=== PATIENT | female | born 1960 ===

== ENCOUNTER 2016-12-22 00:25 | Emergency (ER) | payer SELFPAY ==
--- NOTE | 2016-12-22 04:38 | ED PDOC ---
HPI: Psych/Substance Abuse Chief Complaint (Nursing): Alcohol Ingestion Chief Complaint (Provider): Alcohol Ingestion History/Exam Limitations: no limitations Onset/Duration Of Symptoms: Hrs Additional Complaint(s): Arabella Richardson is a 56 year old female with no known past pertinent medical history who presents to the ED for alcohol intoxication. She was brought to the ED with associated symptoms of Slur speech and unstable gate. Patient is not alert or oriented.The was called but not willing to pick her up. Past Medical History Reviewed: Historical Data, Nursing Documentation, Vital Signs Vital Signs: Last Vital Signs Temp 98.3 F 12/22/16 00:28 Pulse 122 H 12/22/16 00:28 Resp 18 12/22/16 00:28 BP 123/100 H 12/22/16 00:28 Pulse Ox 99 12/22/16 00:28 - Medical History PMH: No Chronic Diseases - Surgical History Surgical History: No Surg Hx - Family History Family History: States: Unknown Family Hx - Allergies Allergies/Adverse Reactions: Allergies Allergy/AdvReac Type Severity Reaction Status Date / Time Unobtainable Allergy Verified 12/22/16 00:34 Review of Systems ROS Statement: Except As Marked, All Systems Reviewed And Found Negative Gastrointestinal: Negative for: Nausea, Vomiting Neurological: Positive for: Change in Speech (Slurd speech) Physical Exam - Reviewed Nursing Documentation Reviewed: Yes Vital Signs Reviewed: Yes - Physical Exam Appears: Positive for: Well, Non-toxic, No Acute Distress Head Exam: Positive for: ATRAUMATIC, NORMAL INSPECTION, NORMOCEPHALIC Skin: Positive for: Normal Color, Warm, Dry Eye Exam: Positive for: Normal appearance, EOMI, PERRL ENT: Positive for: Normal ENT Inspection Neck: Positive for: Normal, Painless ROM, Supple Cardiovascular/Chest: Positive for: Regular Rate, Rhythm. Negative for: Tachycardia Respiratory: Positive for: Normal Breath Sounds. Negative for: Respiratory Distress Gastrointestinal/Abdominal: Positive for: Normal Exam, Soft. Negative for: Tenderness Back: Positive for: Normal Inspection Extremity: Positive for: Normal ROM Neurologic/Psych: Positive for: Gait (Unsteady). Negative for: Alert (Somnolent ) - ECG O2 Sat by Pulse Oximetry: 99 (RA) Pulse Ox Interpretation: Normal Medical Decision Making Medical Decision Making: Initial Impression: Alcohol Intoxication Initial Plan: * Patient Observation * Re-Eval Disposition - Clinical Impression Clinical Impression: Alcohol abuse - Patient ED Disposition Is Patient to be Admitted: No - Disposition Disposition: Routine/Home Disposition Time: 12:10 Condition: IMPROVED Instructions: Alcohol Intoxication (DC)
[2016-12-22 05:28] VITALS: BP 144/86; PULSE 88; RESP 16; TEMP 97.9
[2016-12-24 12:11] VITALS: O2SAT 99
== END 2016-12-22 05:28 | disposition home or self-care (01) ==
LOC: H.ER 00:25
DX: F10.10 Alcohol abuse, uncomplicated (principal)